=== PATIENT | female | born 1980 | race Caucasian/White ===

== ENCOUNTER 2018-04-17 11:20 | Observation (INO) | payer OTHER ==
--- NOTE | 2018-04-17 11:32 | EDPHY ---
H & P Time Seen by Provider: 04/17/18 11:22 HPI/ROS: CHIEF COMPLAINT: Weakness, chills, syncope HISTORY OF PRESENT ILLNESS: The patient is a 37-year-old female with previous and a surgical 2 weeks ago in [place] of a 6 week gestational age fetus. She was feeling well until yesterday and then this morning woke up feeling weak, lightheaded and shaky. She called an ambulance. When ambulance arrived they found her pale and hypotensive 80/40. They got her into a stair chair and she fainted. They obtained and normal EKG and glucose level and placed IVs in began IV fluids. Her blood pressure is now 115/80. She still looks pale and shaking. She complains of generalized weakness. She does have lower abdominal pain and mild tenderness. She denies vaginal bleeding or discharge. No urinary symptoms. No nausea vomiting. No diarrhea. Severity: Severe Modifying factors: Improved with fluids REVIEW OF SYSTEMS: Constitutional: denies: chills, fever, recent illness, recent injury EENTM: denies: blurred vision, double vision, nose congestion Respiratory: denies: cough, shortness of breath Cardiac: denies: chest pain, irregular heart rate, lightheadedness, palpitations Gastrointestinal/Abdominal: denies: abdominal pain, diarrhea, nausea, vomiting, blood streaked stools Genitourinary: denies: dysuria, frequency, hematuria, pain Musculoskeletal: denies: joint pain, muscle pain Skin: denies: lesions, rash, jaundice, bruising Neurological: See HPI denies: headache, numbness, paresthesia, tingling Hematologic/Lymphatic: denies: blood clots, easy bleeding, easy bruising Immunologic/allergic: denies: HIV/AIDS, transplant 10 systems reviewed and negative except as noted EXAM: GENERAL: Pale, in distress, shaking HEAD: Atraumatic, normocephalic. EYES: Pupils equal round and reactive to light, extraocular movements intact, sclera anicteric, conjunctiva are normal. ENT: TMs normal, nares patent, oropharynx clear without exudates. Moist mucous membranes. NECK: Normal range of motion, supple without lymphadenopathy or JVD. LUNGS: Breath sounds clear to auscultation bilaterally and equal. No wheezes rales or rhonchi. HEART: Regular rate and rhythm without murmurs, rubs or gallops. ABDOMEN: Bilateral lower quadrant tenderness, normoactive bowel sounds. No guarding, no rebound. No masses appreciated. BACK: No CVA tenderness, no spinal tenderness, step-offs or deformities EXTREMITIES: Normal range of motion, no pitting or edema. No clubbing or cyanosis. NEUROLOGICAL: Cranial nerves II through XII grossly intact. Normal speech, normal gait. 5/5 strength, normal movement in all extremities, normal sensation , normal reflexes PSYCH: Normal mood, normal affect. SKIN: Warm, dry, normal turgor, no visible rashes or lesions. Source: Patient, EMS Exam Limitations: Clinical condition - Personal History Tetanus Vaccine Date: 2000 - Medical/Surgical History Hx Asthma: No Hx Chronic Respiratory Disease: No Hx Diabetes: No Hx Cardiac Disease: No Hx Renal Disease: No Hx Cirrhosis: No Hx Alcoholism: No Hx HIV/AIDS: No - Family History Significant Family History: No pertinent family hx - Social History Smoking Status: Never smoked Alcohol Use: Sober Drug Use: None Constitutional: Initial Vital Signs Temperature (C) 36.5 C 04/17/18 11:20 Heart Rate 89 04/17/18 11:20 Respiratory Rate 16 04/17/18 11:20 Blood Pressure 96/73 L 04/17/18 11:20 O2 Sat (%) 96 04/17/18 11:20 O2 Delivery Mode Room Air Allergies/Adverse Reactions: dextromethorphan HBr [From Robitussin-DM] Allergy (Severe, Verified 08/27/11 19: 33) guaifenesin [From Robitussin-DM] Allergy (Severe, Verified 08/27/11 19:33) Home Medications: Medication Instructions Recorded Ibuprofen [Motrin (*)] 400 mg PO DAILY PRN 04/17/18 Multivitamins [Multivitamin (*)] 1 each PO DAILY 04/17/18 Acetaminophen [Tylenol ES 500 mg 1,000 mg PO Q8HRS tab 04/18/18 (*)] Ibuprofen [Motrin (*)] 600 mg PO Q8H tab 04/18/18 oxyCODONE IR [Oxycodone Ir (*)] 5 - 10 mg PO Q4HRS PRN #20 tab 04/18/18 Medical Decision Making - Diagnostics EKG Interpretation: An EKG obtained and was read and documented in trace view. Please see trace view for full reading and report. Sinus rhythm, no acute ischemic changes Imaging: Discussed imaging studies w/ animal sitter Radiologist ED Course/Re-evaluation: 12:00 p.m. the patient began complaining of bilateral shoulder pain. The ophthalmic technician apprentice was preparing for her ultrasound and asked her to do a fast exam. The patient has a positive fast with stripes of fluid around her liver or spleen and bladder. She appears to have some type of cyst in her left adnexa as well. Her blood pressures remained stable. Her H&H is reassuring. I placed a call to OBGYN and spoke with Dr. Elena who will come to evaluate. 1:[address] Elena is here to evaluate the patient. She is requesting we also consult general surgery. 1:05 p.m. I discussed the case with Dr. Wilkins who will come to evaluate as well. They will take the patient to the OR. Differential Diagnosis: Partial list of the Differential diagnosis considered include but were not limited to; intra-abdominal hemorrhage, infection, sepsis, perforation and although unlikely based on the history and physical exam, I also considered ovarian cyst, ectopic , heterotopic . Critical Care Time: Critical care time spent by me, Dr. Stearns exclusive with this patient was 35 minutes, exclusive of the PA time exclusive of procedures. The organ system that was at risk was cardiovascular and I gave fluids, pain medications workup and consultation to prevent worsening of the patient's condition - Data Points Laboratory Results: Laboratory Results 04/17/18 11:30 04/17/18 11:30 04/17/18 11:57 Patient ABO/Rh A POSITIVE Antibody Screen NEGATIVE Crossmatch IS Only See Detail Platelet Orders Status READY Medications Given: Acetaminophen (Tylenol) 1,000 mg PO Q8HRS VLADIMIR Stop: 10/14/18 21:59 Last Admin: 04/18/18 07:55 Dose: 1,000 mg Hydromorphone HCl (Dilaudid) 0.2 - 0.4 mg IVP Q2HRS PRN PRN Reason: Pain, Severe Unable to Take PO Stop: 04/27/18 19:32 Last Admin: 04/18/18 02:02 Dose: 0.4 mg Lactated Ringer's (Lr) 1,000 mls @ 125 mls/hr IV CONT VLADIMIR Stop: 10/14/18 16:29 Last Admin: 04/17/18 17:21 Dose: 1,000 mls Ibuprofen (Motrin) 600 mg PO Q8H VLADIMIR Stop: 10/15/18 17:59 Last Admin: 04/18/18 13:11 Dose: 600 mg Oxycodone HCl (Oxycodone Ir) 5 - 10 mg PO Q4HRS PRN PRN Reason: Pain, Severe Able to Take PO Stop: 04/27/18 16:13 Last Admin: 04/17/18 19:22 Dose: 5 mg Discontinued Medications Acetaminophen (Tylenol) 500 mg PO Q4HRS PRN PRN Reason: Pain, Mild/Fever, Can Take PO Stop: 10/14/18 16:12 Last Admin: 04/17/18 18:34 Dose: 500 mg Bupivacaine HCl (Sensorcaine 0.5% Vial) Confirm Administered Dose 30 ml .ROUTE .STK-MED ONE Stop: 04/17/18 14:11 Last Admin: 04/17/18 15:10 Dose: 10 ml Cefazolin Sodium (Ancef Syringe) Confirm Administered Dose 1 gm .ROUTE .STK-MED ONE Stop: 04/17/18 14:33 Last Admin: 04/17/18 15:09 Dose: 1 gm Fentanyl (Sublimaze) 100 mcg IVP EDNOW ONE Stop: 04/17/18 12:08 Last Admin: 04/17/18 12:08 Dose: 100 mcg Fentanyl (Sublimaze) 100 mcg IVP EDNOW ONE Stop: 04/17/18 13:24 Last Admin: 04/17/18 13:24 Dose: 100 mcg Heparin Sodium (Porcine) (Heparin Sodium) Confirm Administered Dose 1,000 unit .ROUTE .STK-MED ONE Stop: 04/17/18 14:33 Last Admin: 04/17/18 15:09 Dose: 1,000 unit Sodium Chloride (Ns) 1,600 mls @ 3,200 mls/hr 30 ml/kg infuse over 30 min ( 1600 ml) IV EDNOW ONE PRN Reason: Protocol Stop: 04/17/18 12:09 Last Admin: 04/17/18 11:52 Dose: 1,600 mls Ketorolac Tromethamine (Toradol) 15 mg IVP Q6HRS VLADIMIR Stop: 04/18/18 12:01 Last Admin: 04/18/18 14:59 Dose: Not Given Point of Care Test Results: Chemistry 04/17/18 04/17/18 11:28 11:27 POC Sodium 139 mEq/L mEq/L (135-145) POC Potassium 3.8 mEq/L mEq/L (3.3-5.0) POC Chloride 106 mEq/L mEq/L (97-110) POC BUN 16 mg/dL mg/dL (7-23) POC Creatinine 0.9 mg/dL mg/dL (0.6-1.0) POC Glucose 179 mg/dL H mg/dL (70-100) POC Troponin I 0.00 ng/mL ng/mL (0.00-0.08) ISTAT H&H 04/17/18 11:28 POC Hgb 10.5 gm/dL L gm/dL (12.6-16.3) POC Hct 31 % L % (38-47) Departure - Departure Disposition: To OP Cath/Surgery Clinical Impression: Intra abdominal hemorrhage, Ruptured left tubal ectopic causing hemoperitoneum Syncope Qualifiers: Syncope type: unspecified Qualified Code(s): R55 - Syncope and collapse Condition: Critical
--- NOTE | 2018-04-17 11:33 | CPEKG ---
Test Reason : OPEN Blood Pressure : / mmHG Vent. Rate : 070 BPM Atrial Rate : 070 BPM P-R Int : 141 ms QRS Dur : 079 ms QT Int : 422 ms P-R-T Axes : 051 060 042 degrees QTc Int : 456 ms Sinus rhythm Low voltage, extremity and precordial leads Confirmed by Stas Stearns ([id number]) on 04/17/2018 11:33:16 AM Referred By: Confirmed By:Stas tSearns
[2018-04-17 11:37] LABS: PLATELET COUNT 331 10^3/uL (150-400)
[2018-04-17] MEDS ORDERED: NS 1,600 ML IV ONE (11:40)
[2018-04-17 11:53] LABS: INR 1.09 (0.83-1.16); PROTIME(PATIENT) 14.3 SEC (12.0-15.0)
[2018-04-17] MEDS ORDERED: fentaNYL 100 MCG/2 ML INJ ONE (12:03)
[2018-04-17] MEDS ORDERED: fentaNYL 100 MCG/2 ML INJ IVP ONE ×2 (12:07→13:23)
--- NOTE | 2018-04-17 13:27 | PDCONSULT ---
Putaway Driver Note: 37 with abdominal pain and fainted 2 wk s/p surgical in [place] 2 wk ago - no records available. Hypotensive - responding to IVF. No follow up with the provider. Doing well until this morning - abdominal pain and lightheaded and fainted. Min vaginal bleeding. Had Mirena IUD removed 8 wk ago, didn't like how it made her feel - apparently got right after that. Same partner for the past 8 months. Accompanied by female friend. Does not desire sterilization. ROS: neg except for above and left shoulder pain POB: 2 SVDs TAB - surgical in 11/2017, in [place] TAB - 2 wk ago, surgical, in [place] PMH: abnl pap 8 wk ago with IUD removal, no FU yet Medications: multivit, 2 children's Advil this morning All: Robitussin - throat swelling PSH: back 2006 knee 2007 rhinoplasty 2001 FamHx: F - kidney stones No hx of cancer O: Temp Pulse Resp BP Pulse Ox 36.6 C 93 16 99/60 L 95 04/17/18 12:00 04/17/18 12:38 04/17/18 12:38 04/17/18 12:38 04/17/18 12:38 gen - pleasant pale female, mild distress CV - RRR chest - CTAB abd - soft, flat, + tenderness diffusely and mostly in LLQ pelvic exam deferred ext - BLE no edema WBC 22.15 10^3/uL (3.80-9.50) H 04/17/18 11:30 RBC 3.36 10^6/uL (4.18-5.33) L 04/17/18 11:30 Hgb 10.5 g/dL (12.6-16.3) L 04/17/18 11:30 POC Hgb 10.5 gm/dL (12.6-16.3) L 04/17/18 11:28 Hct 30.7 % (38.0-47.0) L 04/17/18 11:30 POC Hct 31 % (38-47) L 04/17/18 11:28 MCV 91.4 fL (81.5-99.8) 04/17/18 11:30 MCH 31.3 pg (27.9-34.1) 04/17/18 11:30 MCHC 34.2 g/dL (32.4-36.7) 04/17/18 11:30 RDW 12.8 % (11.5-15.2) 04/17/18 11:30 Plt Count 331 10^3/uL (150-400) 04/17/18 11:30 MPV 10.0 fL (8.7-11.7) 04/17/18 11:30 Neut % (Auto) Not Reported 04/17/18 11:30 Lymph % (Auto) Not Reported 04/17/18 11:30 [place] % (Auto) Not Reported 04/17/18 11:30 Eos % (Auto) Not Reported 04/17/18 11:30 Baso % (Auto) Not Reported 04/17/18 11:30 Nucleat RBC Rel Count Not Reported 04/17/18 11:30 Absolute Neuts (auto) Not Reported 04/17/18 11:30 Absolute Lymphs (auto) Not Reported 04/17/18 11:30 Absolute Monos (auto) Not Reported 04/17/18 11:30 Absolute Eos (auto) Not Reported 04/17/18 11:30 Absolute Basos (auto) Not Reported 04/17/18 11:30 Absolute Nucleated RBC Not Reported 04/17/18 11:30 Immature Gran % Not Reported 04/17/18 11:30 Seg Neutrophils % 96.0 % 04/17/18 11:30 Band Neutrophils % 1.0 % 04/17/18 11:30 Lymphocytes % 3.0 % 04/17/18 11:30 Monocytes % 0.0 % 04/17/18 11:30 Eosinophils % 0.0 % 04/17/18 11:30 Basophils % 0.0 % 04/17/18 11:30 Metamyelocytes % 0.0 % 04/17/18 11:30 Myelocytes % 0.0 % 04/17/18 11:30 Promyelocytes % 0.0 % 04/17/18 11:30 Blast Cells % 0.0 % 04/17/18 11:30 Immature Gran # Not Reported 04/17/18 11:30 Absolute Seg Neuts 21.26 10^3/uL (1.70-6.50) H 04/17/18 11:30 Absolute Band Neuts 0.22 10^3/uL (0.00-0.70) 04/17/18 11:30 Absolute Lymphocytes 0.66 10^3/uL (1.00-3.00) L 04/17/18 11:30 Absolute Monocytes 0.00 10^3/uL (0.30-0.80) L 04/17/18 11:30 Absolute Eosinophils 0.00 10^3/uL (0.03-0.40) L 04/17/18 11:30 Absolute Basophils 0.00 10^3/uL (0.02-0.10) L 04/17/18 11:30 Absolute Metamyelocyte 0.00 10^3/mL (0.00-0.00) 04/17/18 11:30 Absolute Myelocytes 0.00 10^3/mL (0.00-0.00) 04/17/18 11:30 Absolute Promyelocytes 0.00 10^3/uL (0.00-0.00) 04/17/18 11:30 Absolute Plasma Cells 0.00 10^3/uL (0.00-0.00) 04/17/18 11:30 Nucleated RBCs 0 /100 WBC (0-0) 04/17/18 11:30 Atypical Lymphocytes 1+ H 04/17/18 11:30 Absolute Blast Cells 0.00 10^3/uL (0.00-0.00) 04/17/18 11:30 Plasma Cells % 0.0 % 04/17/18 11:30 Platelet Estimate ADEQUATE (ADEQ) 04/17/18 11:30 Polychromasia 1+ H 04/17/18 11:30 PT 14.3 SEC (12.0-15.0) 04/17/18 11:30 INR 1.09 (0.83-1.16) 04/17/18 11:30 APTT 20.1 SEC (23.0-38.0) L 04/17/18 11:30 D-Dimer < 0.27 ug/mLFEU (0.00-0.50) 04/17/18 11:30 VBG Lactic Acid 1.8 mmol/L (0.7-2.1) 04/17/18 11:57 POC Sodium 139 mEq/L (135-145) 04/17/18 11:28 Sodium 137 mEq/L (135-145) 04/17/18 11:30 POC Potassium 3.8 mEq/L (3.3-5.0) 04/17/18 11:28 Potassium 4.0 mEq/L (3.3-5.0) 04/17/18 11:30 POC Chloride 106 mEq/L (97-110) 04/17/18 11:28 Chloride 106 mEq/L (97-110) 04/17/18 11:30 Carbon Dioxide 19 mEq/l (22-31) L 04/17/18 11:30 Anion Gap 12 mEq/L (6-14) 04/17/18 11:30 POC BUN 16 mg/dL (7-23) 04/17/18 11:28 BUN 17 mg/dL (7-23) 04/17/18 11:30 Creatinine 0.8 mg/dL (0.6-1.0) 04/17/18 11:30 POC Creatinine 0.9 mg/dL (0.6-1.0) 04/17/18 11:28 Estimated GFR > 60 04/17/18 11:30 Glucose 165 mg/dL (70-100) H 04/17/18 11:30 POC Glucose 179 mg/dL (70-100) H 04/17/18 11:28 Calcium 8.9 mg/dL (8.5-10.4) 04/17/18 11:30 Total Bilirubin 0.7 mg/dL (0.1-1.4) 04/17/18 11:30 Conjugated Bilirubin 0.0 mg/dL (0.0-0.5) 04/17/18 11:30 Unconjugated Bilirubin 0.7 mg/dL (0.0-1.1) 04/17/18 11:30 AST 17 IU/L (14-46) 04/17/18 11:30 ALT 25 IU/L (9-52) 04/17/18 11:30 Alkaline Phosphatase 38 IU/L (38-126) 04/17/18 11:30 POC Troponin I 0.00 ng/mL (0.00-0.08) 04/17/18 11:27 Total Protein 5.9 g/dL (6.3-8.2) L 04/17/18 11:30 Albumin 3.3 g/dL (3.5-5.0) L 04/17/18 11:30 Beta HCG, Qual POSITIVE 04/17/18 11:30 Beta HCG, Quant 76751.00 mIU/mL (0.00-4.83) H 04/17/18 10:30 Ethyl Alcohol < 10 mg/dL (0-10) 04/17/18 11:30 Patient ABO/Rh A POSITIVE 04/17/18 11:57 Antibody Screen NEGATIVE 04/17/18 11:57 Crossmatch IS Only See Detail 04/17/18 11:57 FAST - fluid around spleen and liver ABd US - suggests LLQ ectopic with pole at 6w6d without cardiac activity Imp: 37 with probably ruptured ectopic Plan: Written informed consent obtained. To OR for laparoscopy, possible laparotomy and removal of ectopic - likely salpingectomy. DR. Wilkins, gen surgeon consulted and to assist. Jessika Elena MD, FACOG [facility]
[2018-04-17] MEDS ORDERED: PROPOFOL 200 MG/20 ML VIAL ONE (13:49)
[2018-04-17] MEDS ORDERED: SUCCINYLCHOLINE CHLORIDE 200 MG/10 ML SYR IVP ONE (13:49)
[2018-04-17] MEDS ORDERED: ROCURONIUM 50 MG/5 ML VIAL ONE (13:49)
[2018-04-17] MEDS ORDERED: fentaNYL 250 MCG/5 ML INJ ONE (13:49)
[2018-04-17] MEDS ORDERED: LIDOCAINE 2% 5 ML SDV ONE (13:50)
[2018-04-17] MEDS ORDERED: ePHEDrine SULFATE 25 MG/5 ML SYR ONE (14:03)
[2018-04-17] MEDS ORDERED: BUPIVACAINE 0.5% 30 ML SDV ONE (14:10)
--- NOTE | 2018-04-17 14:10 | PDANEPAE ---
ANE History of Present Illness 37 yo with hx of 2 weeks admitted through ER due to hypotension ANE Past Medical History - Cardiovascular History Hx Hypertension: No Hx Arrhythmias: No Hx Chest Pain: No Hx Coronary Artery / Peripheral Vascular Disease: No Hx CHF / Valvular Disease: No Hx Palpitations: No - Pulmonary History Hx COPD: No Hx Asthma/Reactive Airway Disease: No Hx Recent Upper Respiratory Infection: No Hx Oxygen in Use at Home: No - Endocrine History Hx Diabetes: No Hypothyroid: No Hyperthyroid: No Obesity: no - Renal History Hx Renal Disorders: No - Liver History Hx Hepatic Disorders: No - Neurological & Psychiatric Hx Hx Neurological and Psychiatric Disorders: No - Cancer History Hx Cancer: No - Congenital Disorder History Hx Congenital Disorders: No - GI History GERD: no, mild Hx Gastrointestinal Disorders: No ANE Review of Systems Review of systems is: negative Review of Systems: - Exercise capacity METS (RN): 4 METS ANE Patient History - Allergies Allergies/Adverse Reactions: dextromethorphan HBr [From Robitussin-DM] Allergy (Severe, Verified 08/27/11 19: 33) guaifenesin [From Robitussin-DM] Allergy (Severe, Verified 08/27/11 19:33) - Home Medications Home medications: home medication list seen and reviewed Home Medications: NK [No Known Home Meds] 04/17/18 [Last Taken Unknown] - NPO status NPO Status: no food or drink >8 hours - Anes Hx Anes Hx: no prior problems - Smoking Hx Smoking Status: Never smoked - Alcohol Use Alcohol Use: None - Family Anes Hx Family Anes Hx: none ANE Labs/Vital Signs - Labs Result Diagrams: 04/17/18 11:30 04/17/18 11:30 - Vital Signs Blood Pressure: 99/62 Heart Rate: 93 Respiratory Rate: 16 O2 Sat (%): 95 Height: 162.56 cm Weight: 54.431 kg ANE Physical Exam - Airway Neck exam: FROM Mallampati Score: Class 2 Mouth exam: normal dental/mouth exam - Pulmonary Pulmonary: no respiratory distress, clear to auscultation - Cardiovascular Cardiovascular: regular rate and rhythym, no murmur, rub, or gallop - ASA Status ASA Status: II, E ANE Anesthesia Plan Anesthesia Plan: general endotracheal anesthesia
[2018-04-17] MEDS ORDERED: HEPARIN 1000 UNIT/1 ML MDV ONE (14:32)
[2018-04-17] MEDS ORDERED: ceFAZolin 1 GM/5 ML SYR ONE (14:32)
[2018-04-17] MEDS ORDERED: HYDROmorphONE/DILAUDID 2 MG/ML INJ IVP PRN (14:55)
[2018-04-17] MEDS ORDERED: MEPERIDINE 25 MG/0.5 ML AMP IVP PRN (14:55)
[2018-04-17] MEDS ORDERED: NALOXONE HCL 0.4 MG/ML INJ IVP PRN (14:55)
[2018-04-17] MEDS ORDERED: PROMETHAZINE HCL 25 MG/ML INJ IVP PRN (14:55)
[2018-04-17 15:01] LABS: INR 1.54 (0.83-1.16); PROTIME(PATIENT) 18.6 SEC (12.0-15.0)
[2018-04-17] MEDS ORDERED: ONDANSETRON 4 MG/2 ML VIAL ONE (15:03)
[2018-04-17] MEDS ORDERED: NEOSTIGMINE METHYLSULFATE 5 MG/5 ML SYR ONE (15:04)
[2018-04-17] MEDS ORDERED: GLYCOPYRROLATE 0.2 MG/1 ML VIAL ONE ×2 (15:04)
[2018-04-17] MEDS ORDERED: DEXAMETHASONE 4 MG/ML VIAL ONE (15:04)
--- NOTE | 2018-04-17 15:11 | POSTANESTH ---
Post Anesthetic Evaluation Cardiovascular Status: Normal, Stable Respiratory Status: Normal, Stable Level of Consciousness/Mental Status: Can Participate in Eval Pain Control: Adequate, Prn Tx Ordered Nausea/Vomiting Control: Adequate, Prn Tx Ordered Complications Possibly Related to Anesthesia: None Noted
--- NOTE | 2018-04-17 15:51 | POSTOPPROG ---
Post Op Note Date of Operation: 04/17/18 Surgeon: Jessika Elena Toxicology Supervisor: Benjamin Wilkins Anesthesiologist: Oanh Berger Anesthesia: GET(General Endotracheal) Pre-op Diagnosis: hemoperitoneum, suspected ectopic Post-op Diagnosis: same Indication: 37 yo with suspected hemoperitoneum and suspected ectopic Procedure: Laparoscopic left salpingectomy Findings: appoximately 2L of blood/clot in abdomen, L tube with ectopic Inf/Abcess present in the surg proc area at time of surgery?: No EBL: 50-100 Total fluids administered: 2L Complications: none Specimen(s): Left tube with ectopic
[2018-04-17] MEDS ORDERED: ONDANSETRON DISINTEGRATING 4 MG TAB PO PRN (16:05)
[2018-04-17] MEDS ORDERED: ONDANSETRON 4 MG/2 ML VIAL IVP PRN (16:05)
[2018-04-17] MEDS ORDERED: ACETAMINOPHEN 500 MG TAB PO PRN (16:13)
[2018-04-17] MEDS ORDERED: LR 1,000 ML IV SCH (16:30)
[2018-04-17] MEDS: KETOROLAC 15 MG/1 ML SDV IVP SCH ×2 (17:21→23:14)
[2018-04-17] MEDS: oxyCODONE IR 5 MG TAB PO PRN ×2 (18:49→19:22)
--- NOTE | 2018-04-17 18:55 | GOP ---
DATE OF OPERATION: 04/17/2018 SURGEON: Jessika Elena MD OPHTHALMIC TECH: Benjamin Wilkins MD. ANESTHESIA: General endotracheal. ANESTHESIOLOGIST: Oanh Berger MD. PREOPERATIVE DIAGNOSIS: 1. Hemoperitoneum. 2. Suspected ectopic . POSTOPERATIVE DIAGNOSIS: 1. Hemoperitoneum. 2. Suspected ectopic . PROCEDURE PERFORMED: Laparoscopic left salpingectomy. FINDINGS: Approximately 2 L of blood in her abdomen. Left tube with an ectopic . Normal-appearing appendix. Normal-appearing liver edge and spleen. Normal-appearing ovaries. Normal-appearing right tube. SPECIMENS: Left tube with ectopic . ESTIMATED BLOOD LOSS: 100 mL intraoperatively. Approximately 2 L of blood was in her abdomen. INDICATIONS: 37-year-old 4, para 2 female who presented to the emergency room this morning with lower abdominal pain and a fainting episode. Two weeks prior she had a surgical done in [place]. She was doing well until this morning. Ultrasound findings in the emergency room showed suspected hemoperitoneum and suspected left ectopic with a mass showing a pole with a crown-rump length consistent with 6 weeks 6 days with no cardiac activity. DESCRIPTION OF PROCEDURE: Written informed consent was obtained from the patient in the emergency room. She was then taken immediately up to the operating room. When general anesthesia was deemed adequate, she was placed in the dorsal lithotomy position using the Yellofin stirrups. Her abdomen and vagina were sterilely prepared and draped in the standard fashion. A Simpson catheter was placed. A time-out was performed. A speculum was inserted in the vagina. Tenaculum was then attached to the anterior lip of the cervix. An acorn cannula was inserted through the cervix and attached to the tenaculum. The speculum was removed from the vagina. Gloves were changed. Attention was turned to the abdomen. 0.5% Marcaine was infiltrated in the infraumbilical area. An incision was made. A 5 mm scope with trocar with the Visiport scope was inserted and confirmed entrance into the peritoneum with the release of blood and with direct visualization. The patient was placed in Trendelenburg. Right and left lower quadrant ports were placed under direct visualization using the 5 mm ports. The infraumbilical 5 mm port was then changed to a 10 mm port under direct visualization. Suction irrigation was used to remove the majority of the clot from the peritoneal cavity. The left ectopic in the left tube was identified. The tube was grasped and excised along the mesosalpinx and across the cornua. The tube and ectopic were then placed into an EndoCatch bag and were removed intact from the abdomen. Considerable suction irrigation was performed along the colic gutters and near the spleen and liver per Dr. Wilkins. The patient was then placed in reverse Trendelenburg and continuous suction irrigation was performed in the pelvis. The operative site was noted to be completely hemostatic. The right tube and ovary were also inspected as was the appendix and all noted to be completely normal. The pressure was decreased in the abdomen and the operative site was still hemostatic. The trocars were removed under direct visualization. The abdomen was desufflated. The infraumbilical fascia was closed with 0 Vicryl in a running fashion. The skin was closed with 4-0 Vicryl in a running subcuticular fashion. Mastisol and Steri-Strips were placed. The instruments were removed from her vagina. She was extubated in the operating room and taken to the recovery room in stable condition. Sponge, lap, and needle counts were correct x2. Intraop Hct was 17, and vital signs remained stable. TOTAL IV FLUIDS ADMINISTERED: 2 L in the operating room. (2.5 L in the ED prior to the OR) COMPLICATIONS: None. /[id number]/MODL MTDD
[2018-04-17] MEDS: HYDROmorphONE/DILAUDID 1 MG/ML INJ IVP PRN ×2 (19:52→22:00)
--- NOTE | 2018-04-17 21:02 | SOAPPROG ---
SOAP Progress Note Assessment/Plan: Assessment: 37 yo POD#0 s/p l'scopic Left salpingectomy and drainage of hemoperitoneum - had some difficulty with pain control - but feels better now. Anemia - stable and actually hct increased. Discussed operative findings. Plan: Continue to monitor closely, IV dilaudid prn for pain, scheduled tylenol and Toradol. CBC in AM. Just voided on a bedpan - will encourage out of bed to void in next few hours. Jessika Elena MD, FACOG [facility] 04/17/18 20:55 Subjective: Pt currently resting comfortably after receiving IV dilaudid, though pain was not well controlled an hour or so ago. The pain that bothers her the most is shoulder pain. Has some crampy abdominal discomfort. Has not been out of bed yet. Has tolerated some jello and water without nausea. Objective: Vital Signs Temp Pulse Resp BP Pulse Ox 37.3 C 93 16 92/45 L 97 04/17/18 19:45 04/17/18 19:45 04/17/18 19:45 04/17/18 19:45 04/17/18 19:45 Laboratory Results 04/17/18 19:30 04/16/18 04/17/18 04/18/18 05:59 05:59 05:59 Intake Total 1900 Output Total 300 Balance 1600 PT 18.6 SEC (12.0-15.0) H 04/17/18 14:27 INR 1.54 (0.83-1.16) H 04/17/18 14:27 gen - pleasant, interactive though sleepy female resting in bed CV - RRR chest - CTAB abd - soft, flat, + BS, inc - d/i with steristrips, with a sm amt sanguinous drainage ext - SCDs in place, calves NT - Time Spent With Patient Time Spent With Patient: 25 min - Pending Discharge Pending Discharge Within 24 Hours: Yes Pending Discharge Within 48 Hours: Yes Pending Discharge Date: 04/18/18 Pending Discharge Time: 11:00 ICD10 Worksheet Patient Problems: Problems Problem Status Onset Intra abdominal hemorrhage Acute Syncope Acute (spontaneous vaginal delivery) Acute
[2018-04-18] MEDS: ACETAMINOPHEN 500 MG TAB PO SCH ×4 (00:06→07:55)
[2018-04-18] MEDS: HYDROmorphONE/DILAUDID 1 MG/ML INJ IVP PRN ×2 (00:06→02:02)
[2018-04-18] MEDS: KETOROLAC 15 MG/1 ML SDV IVP SCH ×3 (05:34→14:59)
[2018-04-18 06:13] LABS: PLATELET COUNT 180 10^3/uL (150-400)
--- NOTE | 2018-04-18 08:25 | SOAPPROG ---
SOAP Progress Note Assessment/Plan: Assessment: 37 yo POD#0 s/p l'scopic Left salpingectomy and drainage of hemoperitoneum - had some difficulty with pain control - but feels better now. Anemia - stable and actually hct increased. Discussed operative findings. Plan: Continue to monitor closely, IV dilaudid prn for pain, scheduled tylenol and Toradol. CBC in AM. Just voided on a bedpan - will encourage out of bed to void in next few hours. Jessika Elena MD, FACOG [facility] 04/17/18 20:55 A/P: 37 yo POD#1 s/p lscopic left salpingectomy and drainage of hemoperitoneum. Symptomatic anemia - B/R/A discussed, written informed consent obtained. Will transfuse 2 U PRBC and recheck H/H 1 hour after complete Tympanitic - mild abd distension likely 2/2 gas. Ambulation encouraged. Explained that walking and mobility helps with healing and with pain control, and low abd discomfort likely 2/[address] Lingroz aware of plan and will check on patient after transfusion. Pt to follow up with me in office in 2 weeks. Jessika Elena MD, FACOG [facility] 04/18/18 08:21 Subjective: Pt resting comfortably. Has not been out of bed, only has sat at edge of bed. Has been using bedpan to void. No vag bleeding. Was lightheaded with sitting up. Objective: Vital Signs Temp Pulse Resp BP Pulse Ox 37.1 C 70 16 96/51 L 100 04/18/18 00:08 04/18/18 08:04 04/18/18 00:08 04/18/18 08:04 04/18/18 08:04 Laboratory Results 04/18/18 06:00 04/17/18 04/18/18 04/19/18 05:59 05:59 05:59 Intake Total 1900 Output Total 900 Balance 1000 PT 18.6 SEC (12.0-15.0) H 04/17/18 14:27 INR 1.54 (0.83-1.16) H 04/17/18 14:27 gen - pleasant, smiling, communicative CV - RRR chest - CTAB abd - mildly distended and typmanitic, + BS, soft, mild diffuse tenderness, no rebound, no guarding ext - SCDs in place - Time Spent With Patient Time Spent With Patient: 15 min - Pending Discharge Pending Discharge Within 24 Hours: Yes Pending Discharge Within 48 Hours: Yes Pending Discharge Date: 04/19/18 Pending Discharge Time: 11:00 ICD10 Worksheet Patient Problems: Problems Problem Status Onset Intra abdominal hemorrhage Acute Syncope Acute (spontaneous vaginal delivery) Acute
[2018-04-18] MEDS ORDERED: IBUPROFEN 600 MG TAB PO ONE (13:10)
[2018-04-18 15:30] VITALS: BP 103/59
[2018-04-18] MEDS ORDERED: IBUPROFEN 600 MG TAB PO SCH (18:00)
== END 2018-04-18 16:57 | disposition home or self-care (01) ==
LOC: EDUNIT# → FOB 17:07
PROVIDERS: ADMIT Hospitalist; ATTEND Hospitalist
PROC: 0UT64ZZ Resection of Left Fallopian Tube, Percutaneous Endoscopic Approach (ICD-10-PCS; principal; 2018-04-17 14:30)
DX: O00.102 Left tubal pregnancy without intrauterine pregnancy (principal); K66.1 Hemoperitoneum
CPT/HCPCS: 59151; 76705; 76815; 93005; 96361; 96374; 96375; 96376; 99291; G0378; P9016; P9017; P9035; 82435-PO; 82565-PO; 82947-PO; 84132-PO; 84295-PO; 84484-PO; 84520-PO; 85014-PO; G0480; J0330; J1100; J1170; J1885; J2405; J2704; J2710; J3010